=== PATIENT | female | born 1990 | race Caucasian/White ===

== ENCOUNTER 2024-09-12 17:49 | Emergency (ER) | payer SELFPAY ==
--- OUTSIDE RECORDS SUMMARY | 2024-09-12 17:53 | XMS REPORT | Continuity of Care Document ---
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 Interpretation Comme nts FT (test code = CHTR) Not detected (qual ifier value) Not Detected N FT (test code = NGONO) Not detected (qualifier value) Not Detected N STLMLURINALYSIS WITH [id number] 18:02:00* Test Item Value Reference Range Interpretation Comme nts Color (test code = UCOLR) Yellow Clarity (test code = UCLAR) Cloudy Glucose (test code = UGLUC) NEGATIVE NEGATIVE N Bilirubin (test code = UBILI) NEGATIVE NEGATIVE N Ketones (test code = UKET) NEGATIVE NEGATIVE N Specific [place] (test code = USPGR) >=1.030 1.005-1.030 A Blood (test code = UBLD) SMALL NEGATIVE A PH (test code = UPH) 6.0 4.5-8.0 A Protein (test code = UPROT) NEGATIVE NEGATIVE N Urobilinogen (test code = U UROB) 1.0 See_Comment A [Automated messa ge] The system which generated this result transmitted reference range: 0.2. The reference range was not used to interpret this result as normal/abnormal. Nitrite (test code = UNITR) NEGATIVE NEGATIVE N Leukocyte Esterase (test code = ULEUK) TRACE NEGATIVE A WBC (test code = WBCUR) 11-20 NONE,0-1,2-5,6-10 A RBC (test code = RBCUR) None Seen 0-5 A Epithial Cells (test code = U EPI) TNTC 0-10 A Mucous (test code = UMUC) Large None Seen A Bacteria (test code = UBACT) 1+ None Seen,Trace A STLMLCOVID EXTENDED [id number] 15:02:00* Test Item Value Reference Range Interpretation Comme nts COVID-19, Real Time PCR-TERRA (test code = COVID) Negative Negative N FT (test code = FLUAPCR) Negative (quali fier value) Negative N FT (test code = FLUBPCR) Negative (quali fier value) Negative N FT (test code = RSV) Negative (qualifier value) Negative N FIRST TEST: (test code = COVO.FT) U EMPLOYEE IN HEALTHCARE: (test code = COVO.EMP) U SYMPTOMATIC DEFINED BY CDC: (test code = COVO.SYMPH) U HOSPITALIZED: (test code = COVO.HOSP) U ADMITTED TO ICU: (test code = COVO.ICU) U RESIDENT IN CONGREGATE CARE (test code = COVO.SVEN) U : (test code = COVO.PREG) Not STLMLSTREP A [id number] 14:30:00* Test Item Value Reference Range Interpretation Comme nts Strep A Screen (test code = SAS) Positive Negative A TESTING IS PER FORMED ON THE [employer] ANALYZER WHICH EMPLOYS IMMUNOFLUORESCENCE TECHNOLOGY TO DETECT GROUP A STREPTOCOCCAL ANTIGENS FROM THROAT SWABS OF SYMPTOMATIC PATIENTS. ALL NEGATIVE RESULTS ARE CONFIRMED BY BACTERIAL CULTURE BECAUSE NEGATIVE RESULTS DO NOT PRECLUDE GROUP A STREP INFECTION AND SHOULD NOT BE USED THE SOLE BASIS FOR TREATMENT. THIS TEST IS INTENDED FOR PROFESSIONAL AND LABORATORY USE AN AID IN THE DIAGNOSIS OF GROUP A STREPTOCOCCAL INFECTION. STLML- CT ABD PELVIS [id number] 09:31:00 [facility] : 1990 Sex: F FAX:Jose Ibarra MD [place]: [facility] St: REG Name: KAYLA HAYES ED : 1990 Age/S: 31/F [address] [facility] Unit: [id number] Loc: [place] [address] Phys: Jose Ibarra MD Acct: [id number] Dis Date: Status: REG ER PHONE #: Exam Date: 01/07/2022924 FAX #: Reason: right abd/flank pain EXAMS: CPT CODE: [id number] CT ABD PELVIS W/CONT 24020 EXAMINATION: - CT ABD PELVIS W/CONT COMPARISON: None HISTORY: Right abdominal/flank pain LOCATION CODE: C3 TECHNIQUE: CT of the Abdomen and Pelvis with intravenous contrast. Oral contrast was not administered. Axial contrast enhanced images of the abdomen and pelvis were obtained and reviewed in soft tissue, bone and lung windows. Coronal and sagittalreconstructed images were also provided for review. All CT scans are performed using dose optimization techniques as appropriate to a performed exam including one or more of the following: ?Automatedexposure control ?Adjustment of the mA and/or kV according to patient size ?Use of iterative reconstruction technique FINDINGS ABDOMEN: The liver, gallbladder and biliary tree, spleen, pancreas, adrenal glands and kidneys are normal. There is no free air, free fluid or lymphadenopathy. The bowel, including the appendix, is normal. The vessels are normal. Mild scar/dependent atelectasis is seen inboth lower lungs. Regional osseous structures are intact. FINDINGS PELVIS: The urinary bladder, uterus and adnexal structures are normal. Small amount of free fluid is seen dependently in the pelvis and is likely physiologic. There is no free air or adenopathy. The bowel, vessels and bones are normal. IMPRESSION: No acute abnormality in the abdomen or pelvis. at 0931 Reported and signed by: Deonna Khan MD PAGE 1 Signed Report (CONTINUED) FAX: Jose Ibarra MD [place]: [facility] St: REG Name: TRICIAVISHNUKAYLA FSED : 1990 Age/S: 31/F [address] [facility] Unit: [id number] Loc: [place] [address] Phys: Jose Ibarra MD Acct: [id number] Dis Date: Status: REG ER PHONE #: Exam Date: 01/07/2022 0984 FAX #: Reason: right abd/flank pain EXAMS: CPT CODE: [id number] CT ABD PELVIS W/CONT 97898 (Continued) CC: Jose Ibarra MD Technologist: REMINGTON MERCADO Trnscrd Dt/Tm: 01/07/2022 (0931) TessR.[email or web address] Orig Print D/T: S: 01/07/2022 (5734 PAGE 2 Signed ReportBASIC METABOLIC PANEL 2022-01-07 09:20:00* Test Item Value Reference Range Interpretation Comme nts SODIUM (test code = NA) 139 MMOL/L 135-147 N POTASSIUM (test code = K) 3.6 MMOL/L 3.6-5.2 N CHLORIDE (test code = CL) 104 MMOL/L 98-108 N CARBON DIOXIDE (test code = CO2) 26 mmol/L 21-32 N GLUCOSE (test code = GLU) 84 mg/dL 70-110 N BLOOD UREA NITROGEN (test code = BUN) 10 MG/DL 6-21 N GLOMERULAR FILTRATION RATE (test code = GFR) 126 >60 The estimated glomerular filtration rate is computed usingpatient race, age (>18), sex, and serum creatinine. If anyof the needed data elements are missing the Laboratory cannot compute an estimation of the glomerular filtration rate. CREATININE (test code = CREAT) 0.6 mg/dL 0.6-1.3 N CALCIUM (test code = CA) 8.6 mg/dL 8.7-10.5 L LIVER FUNCTION [id number] 09:20:00* Test Item Value Reference Range Interpretation Comme nts TOTAL PROTEIN (test code = PROT) 6.8 g/dL 6.0-8.2 N ALBUMIN (test code = ALB) 3.2 G/DL 3.7-5.5 L BILIRUBIN TOTAL (test code = BILT) 0.30 mg/dL 0.0-1.0 N BILIRUBIN DIRECT (test code = BILD) 0.10 mg/dL 0.05-0.3 N SGOT/AST (test code = AST) 11 UNITS/L 10-37 N SGPT/ALT (test code = ALT) 15 UNITS/L 12-78 N ALKALINE PHOSPHATASE (test c ode = ALKP) 49 UNITS/L 46-116 N [id number] 09:20:00* Test Item Value Reference Range Interpretation Comme nts LIPASE (test code = LIP) 56 UNITS/L 73-393 L TROP-I HIGH [id number] 09:20:00* Test Item Value Reference Range Interpretation Comme nts TROP-I HIGH SENSITIVITY (cyndi t code = TROPIHS) 4 pg/mL 0-51 N UR HCG [id number] 08:50:00* Test Item Value Reference Range Interpretation Comme nts UR HCG QUAL (test code = HCGQLU) NEGATIVE NEGATIVE [id number] EXP 1 05/31/22 Indication for culture: Flank PainSOURCE OF URINE: CLEAN CATCHUA RFLX MICR CULT IF [id number] 08:50:00* Test Item Value Reference Range Interpretation Comme nts UA COLOR (test code = COLU) YELLOW YELLOW UA APPEARANCE (test code = APPU) CLOUDY CLEAR A UA GLUCOSE DIPSTICK (test code = DGLUU) NEGATIVE % TEST PERFORM ED MANUALLYUSING SIEMENS [employer] ANALYZER SN:[id number]. UA BILIRUBIN DIPSTICK (test code = BILU) NEGATIVE NEGATIVE UA KETONE DIPSTICK (test code = KETU) Trace MG/DL NEGATIVE A UA SPECIFIC GRAVITY (test code = SGU) 1.025 1.000-1.030 UA BLOOD DIPSTICK (test code = TAD) 3+ NEGATIVE UA PH DIPSTICK (test code = ESTRELLA) 6.5 4.5-8.5 UA PROTEIN DIPSTICK (test code = PROU) TRACE NEGATIVE A UA UROBILINOGEN DIPSTICK (test code = URO) 0.2 EU/dL See_Comment [Automated MyStarAutographa ge] The system which generated this result transmitted reference range: <=1.0. The reference range was not used to interpret this result as normal/abnormal. UA NITRITE DIPSTICK (test code = AILYN) NEGATIVE NEGATIVE UA LEUKOCYTE ESTERASE DIPSTICK (test code = LEUU) TRACE NEGATIVE A UA WBC (test code = WBCUR) 6-10 /HPF 0-3 UA RBC (test code = RBCU) 11-20 /HPF 0-3 A UA EPITHELIAL CELLS (test code = EPIU) MODERATE /LPF NONE-FEW A UA BACTERIA (test code = BACU) 2+ /HPF NEGATIVE A UA MUCUS (test code = MUCU) 2+ /LPF NONE SEEN Indication for culture: Flank PainSOURCE OF URINE: CLEAN CATCHCBC W/AUTO DIFF 2022-01-07 08:30:00* Test Item Value Reference Range Interpretation Comme nts WHITE BLOOD CELL (test code = WBC) 10.3 x10 3/uL 5.0-12.0 N RED BLOOD CELL (test code = RBC) 5.04 x10 6/uL 4.20-5.40 N HEMOGLOBIN (test code = HGB) 15.8 g/dL 12.0-16.0 N HEMATOCRIT (test code = HCT) 46.6 % 36.0-46.0 H MEAN CELL VOLUME (test code = MCV) 93 fL 81-99 N MEAN CELL HGB (test code = MCH) 31.3 pg 27-31 H MEAN CELL HGB CONCENTRATION (test code = MCHC) 33.9 g/dL 33-37 N RED CELL DISTRIBUTION WIDTH (test code = RDW) 13.3 % 11.5-15.5 N PLATELET COUNT (test code = PLT) 262 x10 3/uL 130-400 N MEAN PLATELET VOLUME (test c ode = MPV) 9.6 fL 9.4-16.4 N NEUTROPHIL % (test code = NT%) 72.8 % 43-65 H IMMATURE GRANULOCYTE % (test code = IG%) 0.3 % 0.0-2.0 N LYMPHOCYTE % (test code = LY%) 20.0 % 20.5-45.5 L MONOCYTE % (test code = MO%) 4.3 % 5.5-11.7 L EOSINOPHIL % (test code = EO%) 2.4 % 0.9-2.9 N BASOPHIL % (test code = BA%) 0.2 % 0.2-1.0 N NEUTROPHIL # (test code = NT#) 7.52 x10 3/uL 2.2-4.8 H IMMATURE GRANULOCYTE # (test code = IG#) 0.03 x10 3/uL 0-0.03 N LYMPHOCYTE # (test code = LY#) 2.06 x10 3/uL 1.3-2.9 N MONOCYTE # (test code = MO#) 0.44 x10 3/uL 0.3-0.8 N EOSINOPHIL # (test code = EO#) 0.25 x10 3/uL 0.0-0.2 H BASOPHIL # (test code = BA#) 0.02 x10 3/uL 0.0-0.1 N SALICYLATES (Aspirin)2020-09-09 00:07:00* Test Item Value Reference Range Interpretation Comme nts Salicylate (test code = SALI) 2.8 mg/dl 0.0-30.0 Salicylates Refe rence Ranges: Therapeutic 15 - 30 mg/dl Toxicity >30 mg/dl Lethal >70 mg/dl [facility], Urine [id number] 00:06:00* Test Item Value Reference Range Interpretation Comme nts (Urine) (test code = PREGU) Negative [facility] Summit[facility] SCREEN [id number] 00:06:00* Test Item Value Reference Range Interpretation Comme nts PH (test code = UPH) 6.0 Specific [place] (test code = USPGR) >=1.030 Amphetamines (test code = AMPHET) Positive FT (test code = BRIANA) Negative (qualifier value) FT (test code = BENZO) Negative (qualifier value) FT (test code = LORI) Negative (qualifier value) FT (test code = MTD) Negative (qualifier value) FT (test code = OPIAT) Negative (qualifier value) FT (test code = PCP) Negative (qualifier value) The following table provides an interpretive guide for the Drugs of Abuse ran on the Siem[employer] [place] analyzer listed there in: Amphetamines < 1000 ng/ml = Negative Barbituates < 200 ng/ml = Negative Benzodiazapines < 200 ngml = Negative Cocaine < 300 ng/ml = Negative Methadone < 300 ng/ml = Negative Opiate < 300 ng/ml = Negative PCP < 25 ng/ml = Negative THC < 50 ng/ml = Negative Results equal to or greater than the above cut-off values = Presumptive Positive. Confirmation of Presumptive Positive results are available upon request. Cannabinoids, THC (test code = THC) Positive [facility] (Ultra Sensitive)2020-09-09 00:06:00* Test Item Value Reference Range Interpretation Comme nts TSH (test code = TSH) 0.83 mIU/L 0.47-4.68 [facility] Summit[facility]MP2021-05-11 00:06:00* Test Item Value Reference Range Interpretation Comme nts Glucose (test code = GLU) 117 mg/dl 75-110 H BUN (test code = BUN) 13.0 mg/dl 6.0-17.0 Creatinine (test code = CREA) 0.8 mg/dl 0.4-1.2 Sodium (test code = NA) 138 mmol/l 137-145 Potassium (test code = K) 3.8 mmol/l 3.5-5.0 Chloride (test code = CL) 109 mmol/l 98-107 H CO2 (test code = CO2) 22 mmol/l 22-30 Calcium (test code = CALC) 9.0 mg/dl 8.4-10.2 T Protein (test code = TP) 7.6 gm/dl 5.1-8.7 Albumin (test code = ALB) 4.0 gm/dl 3.5-4.6 A/G Ratio (test code = AGRAT) 1.1 % 1.1-2.2 AST (SGOT) (test code = AST) 8 U/L 11-36 L ALT (SGPT) (test code = ALT) 21 U/L 11-40 Alkaline Phos (test code = ALKP) 44 U/L 47-114 L Total Bilirubin (test code = TBIL) 0.3 mg/dl 0.2-1.2 Globulin (test code = GLOBU) 3.6 gm/dl 2.3-3.5 H Calcium, Corrected (test code = CALCCORR) 9.0 mg/dl 8.4-10.2 Various formulas exist for corrected serum calcium results, each yielding different values. This corrected result was based on the formula: Corrected Calcium = SerumCalcium + [0.8 * ( 4 - SerumAlbumin)] EGFR if (test code = EGFRAA) >60 mL/min/1.73m\\ S\\2 EGFR if Non- (test code = EGFRNA) >60 mL/min/1.73m\\ S\\2 Estimated Glomerular Filtration Rate (eGFR) Reference Intervals Decision Points for 18 years and older and average body mass: >= 60 Does not exclude kidney disease. 30 - 59 Suggests moderate chronic kidney disease and indicates the need for further investigation including assessment of proteinuria and cardiovascular factors. < 30 Usually indicates a need for referral for assessment and management of chronic kidney failure. [facility] SummitACETAMINOPHEN (Tyenol)2020-09-09 00:06:00* Test Item Value Reference Range Interpretation Comme nts Acetaminophen (test code = ACET) <2 ug/ml 10-25 L [facility] SummitCPK2021-05-11 00:06:00* Test Item Value Reference Range Interpretation Comme nts CPK (test code = CPK) 110 U/L 30-135 [facility] SummitALCOHOL, [id number] 00:06:00* Test Item Value Reference Range Interpretation Comme nts Alcohol % (test code = ALCPC) 0 % 0.00-0.00 N Ethanol % 0.00 - 0.10 Sub-clinical 0.11 - 0.20 Emotional Instability 0.21 - 0.30 Confusion 0.31 - 0.40 Stupor 0.41 - 0.50 Coma >.50 Fatal [facility] SummitTROPONIN-I [id number] 00:06:00* Test Item Value Reference Range Interpretation Comme nts Troponin-I (test code = TROP) <0.015 ng/ml 0.000-0.034 N The 99th Percent ile URL is 0.045 ng/mL for the Siem[employer] [place] Troponin I. The Joint Society of Cardiology/[place] [employer] Card[employer] (ESC/ACC) and the National Academy of Clinical Biochemistry Standards of Laboratory Practices (NACB) recommends that the diagnosis of AMI includes the presence of clinical history suggestive of Acute Coronary Syndrome (ACS) and a maximum concentration of cardiac troponin exceeding the 99th percentile of a normal reference population [upper reference limit (URL)] on at least one occasion during the first 24 hours after the clinical event. [facility] SummitURINALYSIS WITH [id number] 00:05:00 * Test Item Value Reference Range Interpretation Comme nts Color (test code = UCOLR) Yellow Clarity (test code = UCLAR) Hazy Glucose (test code = UGLUC) NEGATIVE NEGATIVE N Bilirubin (test code = UBILI) NEGATIVE NEGATIVE N Ketones (test code = UKET) NEGATIVE NEGATIVE N Specific [place] (test code = USPGR) >=1.030 1.005-1.030 A Blood (test code = UBLD) TRACE-LYSED NEGATIVE A PH (test code = UPH) 6.0 4.5-8.0 A Protein (test code = UPROT) NEGATIVE NEGATIVE N Urobilinogen (test code = U UROB) 0.2 See_Comment N [Automated MyStarAutographa ge] The system which generated this result transmitted reference range: 0.2. The reference range was not used to interpret this result as normal/abnormal. Nitrite (test code = UNITR) NEGATIVE NEGATIVE N Leukocyte Esterase (test code = ULEUK) NEGATIVE NEGATIVE N WBC (test code = WBCUR) 0-5 0-5 N RBC (test code = RBCUR) 3-5 0-5 A Epithial Cells (test code = U EPI) 5-10 0-10 A Mucous (test code = UMUC) Moderate None Seen A Bacteria (test code = UBACT) 2+ None Seen,Trace A [facility] WITH AUTO [id number] 23:51:00* Test Item Value Reference Range Interpretation Comme nts WBC (test code = WBC) 14.03 10\\S\\3/ul 4.80-10.80 H RBC (test code = RBC) 4.59 10\\S\\6/ul 4.20-5.40 Hemoglobin (test code = HGB) 14.3 gm/dl 12.0-14.0 H Hematocrit (test code = HCT) 40.5 % 37.0-47.0 MCV (test code = MCV) 88.2 fL 81.0-99.0 MCH (test code = MCH) 31.2 pg 27.0-31.0 H MCHC (test code = MCHC) 35.3 gm/dl 33.0-37.0 RDW (test code = RDWVC) 12.2 % 11.5-14.5 Platelet (test code = PLT) 223 10\\S\\3/ul 130-400 MPV (test code = MPV) 9.4 fL 7.4-10.4 A "NOT MEASURED" RESULTS ARE DISPLAYED WHEN THE INSTRUMENT HAS A SUPPRESSED OR UNREPORTABLE RESULT. THIS WILL MOST OFTEN HAPPEN WITH THE MPV WHEN THERE IS AN ABNORMAL PLATELET DISTRIBUTION DUE TO A CRITICAL LOW VALUE OR PLATELET CLUMPING. THE RDW MAY BE SUPPRESSED IF THERE ARE MULTIPLE PEAKS PRESENT ON THE RBC HISTOGRAM. IN THIS CASE, A MANUAL REVIEW OF THE SLIDE WILL BE PERFORMED, AND RBC MORPHOLOGY WILL BE NOTED ON THE REPORT. NE% (test code = NE) 85.2 % 42.0-75.0 H LY% (test code = LY) 10.0 % 13.0-42.0 L MO% (test code = MO) 3.9 % 4.0-14.0 L EO% (test code = EO) 0.3 % 1.0-5.0 L BA% (test code = BA) 0.1 % 0.0-3.0 IG% (test code = IG%) 0.5 % 0.0-0.[address] [id number] 07:53:00* Test Item Value Reference Range Interpretation Comme nts Strep A culture (test code = STRAC) Negative Negative N [facility]REP A [id number] 10:41:00* Test Item Value Reference Range Interpretation Comme nts Strep A Screen (test code = SAS) Negative Negative N TESTING IS PER FORMED ON THE [employer] PRAKASH ANALYZER WHICH EMPLOYS IMMUNOFLUORESCENCE TECHNOLOGY TO DETECT GROUP A STREPTOCOCCAL ANTIGENS FROM THROAT SWABS OF SYMPTOMATIC PATIENTS. ALL NEGATIVE RESULTS ARE CONFIRMED BY BACTERIAL CULTURE BECAUSE NEGATIVE RESULTS DO NOT PRECLUDE GROUP A STREP INFECTION AND SHOULD NOT BE USED THE SOLE BASIS FOR TREATMENT. THIS TEST IS INTENDED FOR PROFESSIONAL AND LABORATORY USE AN AID IN THE DIAGNOSIS OF GROUP A STREPTOCOCCAL INFECTION. [facility] Summit[facility] ABDOMEN/PELVIS [id number] 13:29:46pending HCGCT of the abdomen and pelvis with contrast:History: Right lower quadrant abdominal painMultidetector CT of the abdomen and pelvis was performed following intravenousinjection of 100 mL of Isovue-300.Dose reduction technique was employed usingautomated exposure control and adjustment of mA and/or kV according to patientsize. Total DLP 1146 mGy-cm.The visualized lung bases are unremarkable.The liver, spleen, pancreas, gallbladder, adrenals, kidneys and abdominal aortaappear normal.The bladder isunremarkable. The appendix appears normal. No inflammatorychanges are noted. The bowel loops as visualized appear within normal limits.Minimal ascites in the lower pelvis is within physiologic limits. There is nolymphadenopathy. Bilateral L5 pars interarticularis defects are noted withoutspondylolisthesis. There are no significant bony abnormalities.Impression:1. No acute abnormality of the abdomen or pelvis.2. Bilateral L5 spondylolysis without spondylolisthesis.This final report was electronically signed by Dr Jose Hogan MD 02/07/20181:23 PMDictated By: JOSE HOGANDate: 02/07/2018 13:23[facility]OOKURINALYSIS WITH [id number] 13:06:00* Test Item Value Reference Range Interpretation Comme nts Color (test code = UCOLR) LT. YELLOW Clarity (test code = UCLAR) CLEAR Glucose (test code = UGLUC) NEGATIVE NEGATIVE N Bilirubin (test code = UBILI) NEGATIVE NEGATIVE N Ketones (test code = UKET) NEGATIVE NEGATIVE N Specific [place] (test code = USPGR) 1.015 1.005-1.030 A Blood (test code = UBLD) TRACE-INTACT NEGATIVE A PH (test code = UPH) 7.5 4.5-8.0 A Protein (test code = UPROT) NEGATIVE NEGATIVE N Urobilinogen (test code = U UROB) 1.0 >0.2 A Nitrite (test code = UNITR) NEGATIVE NEGATIVE N Leukocyte Esterase (test code = ULEUK) NEGATIVE NEGATIVE N WBC (test code = WBCUR) 2-5 0-5 A RBC (test code = RBCUR) 0-2 0-5 A Epithial Cells (test code = U EPI) 10-20 0-10 A Mucous (test code = UMUC) Trace None Seen A Bacteria (test code = UBACT) Trace None Seen,Trace N Crystals Urine (test code = URCRYS) Trace Amorphous Sediment None [id number]00* Test Item Value Reference Range Interpretation Comme nts Glucose (test code = GLU) 90 mg/dl 75-110 BUN (test code = BUN) 6.0 mg/dl 6.0-17.0 Creatinine (test code = CREA) 0.5 mg/dl 0.4-1.2 Sodium (test code = NA) 142 mmol/l 137-145 Potassium (test code = K) 4.0 mmol/l 3.5-5.0 Chloride (test code = CL) 110 mmol/l 98-107 H CO2 (test code = CO2) 24 mmol/l 22-30 Calcium (test code = CALC) 8.6 mg/dl 8.4-10.2 T Protein (test code = TP) 7.3 gm/dl 5.1-8.7 Albumin (test code = ALB) 3.7 gm/dl 3.5-4.6 A/G Ratio (test code = AGRAT) 1.0 % 1.1-2.2 L AST (SGOT) (test code = AST) 16 U/L 11-36 ALT (SGPT) (test code = ALT) 22 U/L 11-40 Alkaline Phos (test code = ALKP) 51 U/L 47-114 Total Bilirubin (test code = TBIL) 0.4 mg/dl 0.2-1.2 Globulin (test code = GLOBU) 3.6 gm/dl 2.3-3.5 H Calcium, Corrected (test code = CALCCORR) 8.8 mg/dl 8.4-10.2 Various formulas exist for corrected serum calcium results, each yielding different values. This corrected result was based on the formula: Corrected Calcium = SerumCalcium + [0.8 * ( 4 - SerumAlbumin)] EGFR if (test code = EGFRAA) >60 mL/min/1.73m\\ S\\2 EGFR if Non- (test code = EGFRNA) >60 mL/min/1.73m\\ S\\2 Estimated Glomerular Filtration Rate (eGFR) Reference Intervals Decision Points for 18 years and older and average body mass: >= 60 Does not exclude kidney disease. 30 - 59 Suggests moderate chronic kidney disease and indicates the need for further investigation including assessment of proteinuria and cardiovascular factors. < 30 Usually indicates a need for referral for assessment and management of chronic kidney failure. [facility], [id number] 12:39:00* Test Item Value Reference Range Interpretation Comme nts Lipase (test code = LIPA) 70 U/L 8-223 [facility], [id number] 12:39:00* Test Item Value Reference Range Interpretation Comme nts Amylase (test code = AMYL) 24 U/L 12-103 [facility], Serum [id number] 12:28:00* Test Item Value Reference Range Interpretation Comme nts (Serum) (test code = PREGS) Negative Negative N [facility] Summit[facility] WITH AUTO [id number] 12:22:00* Test Item Value Reference Range Interpretation Comme nts WBC (test code = WBC) 14.27 10\\S\\3/ul 4.80-10.80 H RBC (test code = RBC) 4.88 10\\S\\6/ul 4.20-5.40 Hemoglobin (test code = HGB) 15.5 gm/dl 12.0-14.0 H Hematocrit (test code = HCT) 45.2 % 37.0-47.0 MCV (test code = MCV) 92.6 fL 81.0-99.0 MCH (test code = MCH) 31.8 pg 27.0-31.0 H MCHC (test code = MCHC) 34.3 gm/dl 33.0-37.0 RDW (test code = RDWVC) 12.3 % 11.5-14.5 Platelet (test code = PLT) 206 10\\S\\3/ul 130-400 MPV (test code = MPV) 10.4 fL 7.4-10.4 A "NOT MEASURED" RESULTS ARE DISPLAYED WHEN THE INSTRUMENT HAS A SUPPRESSED OR UNREPORTABLE RESULT. THIS WILL MOST OFTEN HAPPEN WITH THE MPV WHEN THERE IS AN ABNORMAL PLATELET DISTRIBUTION DUE TO A CRITICAL LOW VALUE OR PLATELET CLUMPING. THE RDW MAY BE SUPPRESSED IF THERE ARE MULTIPLE PEAKS PRESENT ON THE RBC HISTOGRAM. IN THIS CASE, A MANUAL REVIEW OF THE SLIDE WILL BE PERFORMED, AND RBC MORPHOLOGY WILL BE NOTED ON THE REPORT. NE% (test code = NE) 81.4 % 42.0-75.0 H LY% (test code = LY) 13.0 % 13.0-42.0 MO% (test code = MO) 3.3 % 4.0-14.0 L EO% (test code = EO) 1.5 % 1.0-5.0 BA% (test code = BA) 0.2 % 0.0-3.0 IG% (test code = IG%) 0.6 % 0.0-0.4 H [facility], [id number] 07:21:00Specimen: Urine SpecimensCollected: 06/25/2016 19:57 Status: Final Last Updated: 06/28/2016 07:21 Culture Result (Final) (Final) >100,000 cc/mL Gram Negative Bacilli Isolate (Final) (Final) Escherichia coli Amoxicillin/clavu 4 S Ampicillin 4 S Aztreonam <=1 S Cefazolin <=4 S Cefepime <=1 S Ceftriaxone <=1 S Ciprofloxacin <=0.25 S Gentamicin <=1 S Imipenem <=0.25 S Levofloxacin <=0.12 S Meropenem <=0.25 S Nitrofurantoin <=16 S Tetracycline <=1 S Trimeth/Sulfa & lt;=20 S ESBL Negative -[facility] 1, 21:23:00* Test Item Value Reference Range Interpretation Comme nts HIV 1, 2 (test code = HIV) 0.13 0.00-0.80 INTERPRETATION O F RESULTS: Non-Reactive = < 0.90 s/c Reactive = > 1.00 s/c (Confirmatory tests suggested) Intermediate = > 0.90 s/c and <1.00 s/c (results are based on duplicate testing) 1. Result is considered as Non-Reactive if both the initial and repeat testing results are non-reactive. 2. Result is considered as Reactive if one or both the initial and repeat testing results are reactive. (Confirmatory tests suggested) [facility] WITH AUTO [id number] 20:48:00* Test Item Value Reference Range Interpretation Comme nts WBC (test code = WBC) 10.7 k/ul 4.8-10.8 RBC (test code = RBC) 4.87 Millions/ul 4.20-5.40 Hemoglobin (test code = HGB) 15.0 gm/dl 12.0-14.0 H Hematocrit (test code = HCT) 44.7 % 37.0-47.0 MCV (test code = MCV) 91.8 fL 81.0-99.0 MCH (test code = MCH) 30.9 pg 27.0-31.0 MCHC (test code = MCHC) 33.6 gm/dl 33.0-37.0 RDW (test code = RDWVC) 13.3 % 11.5-14.5 Platelet (test code = PLT) 97 k/ul 130-400 L MPV (test code = MPV) 9.1 fL 7.4-10.4 NE% (test code = NE) 67.3 % 42.0-75.0 LY% (test code = LY) 24.0 % 13.0-42.0 MO% (test code = MO) 4.9 % 4.0-14.0 EO% (test code = EO) 3.3 % 1.0-3.0 H BA% (test code = BA) 0.5 % 1.0-3.0 L NRBC, Auto (test code = NRBC_AUTO) 0 /100WBC 0-0 [facility], Serum [id number] 20:37:00* Test Item Value Reference Range Interpretation Comme nts (Serum) (test code = PREGS) Negative Negative N [facility] SummitURINALYSIS WITH [id number] 20:34:00 * Test Item Value Reference Range Interpretation Comme nts Color (test code = UCOLR) Lt. Yellow Clarity (test code = UCLAR) Sl Cloudy Glucose (test code = UGLUC) NEGATIVE NEGATIVE N Bilirubin (test code = UBILI) NEGATIVE NEGATIVE N Ketones (test code = UKET) NEGATIVE NEGATIVE N Specific [place] (test code = USPGR) 1.010 1.005-1.030 A Blood (test code = UBLD) Large NEGATIVE A PH (test code = UPH) 7.0 4.5-8.0 A Protein (test code = UPROT) Trace NEGATIVE A Urobilinogen (test code = U UROB) 0.2 >0.2 N Nitrite (test code = UNITR) NEGATIVE NEGATIVE N Leukocyte Esterase (test cod e = ULEUK) Small NEGATIVE A WBC (test code = WBCUR) 16-22 0-5 A RBC (test code = RBCUR) 11-16 0-5 A Epithial Cells (test code = U EPI) 28-35 0-10 A Mucous (test code = UMUC) None Seen None Seen N Bacteria (test code = UBACT) 1+ None Seen,Trace A [facility] [id number] 20:30:00* Test Item Value Reference Range Interpretation Comme nts Glucose (test code = GLU) 84 mg/dl 75-110 BUN (test code = BUN) 13.0 mg/dl 6.0-17.0 Creatinine (test code = CREA) 0.7 mg/dl 0.4-1.2 Sodium (test code = NA) 143 mmol/l 137-145 Potassium (test code = K) 4.7 mmol/l 3.5-5.0 Chloride (test code = CL) 106 mmol/l 98-107 CO2 (test code = CO2) 26 mmol/l 22-30 Calcium (test code = CALC) 10.1 mg/dl 8.4-10.2 T Protein (test code = TP) 7.9 gm/dl 5.1-8.7 Albumin (test code = ALB) 4.7 gm/dl 3.5-4.6 H A/G Ratio (test code = AGRAT) 1.5 % 1.1-2.2 AST (SGOT) (test code = AST) 21 U/L 11-36 ALT (SGPT) (test code = ALT) 42 U/L 11-40 H Alkaline Phos (test code = ALKP) 58 U/L 47-114 Total Bilirubin (test code = TBIL) 0.6 mg/dl 0.2-1.2 Globulin (test code = GLOBU) 3.2 gm/dl 2.3-3.5 Anion Gap (test code = GAP) 10 Calcium, Corrected (test code = CALCCORR) 9.5 mg/dl 8.4-10.2 Various formulas exist for corrected serum calcium results, each yielding different values. This corrected result was based on the formula: Corrected Calcium = SerumCalcium + [0.8 * ( 4 - SerumAlbumin)] EGFR if (test code = EGFRAA) >60 mL/min/1.73m\\ S\\2 EGFR if Non- (test code = EGFRNA) >60 mL/min/1.73m\\ S\\2 Estimated Glomerular Filtration Rate (eGFR) Reference Intervals Decision Points for 18 years and older and average body mass: >= 60 Does not exclude kidney disease. 30 - 59 Suggests moderate chronic kidney disease and indicates the need for further investigation including assessment of proteinuria and cardiovascular factors. < 30 Usually indicates a need for referral for assessment and management of chronic kidney failure. [facility]IP[facility], [id number] 20:30:00* Test Item Value Reference Range Interpretation Comme nts Lipase (test code = LIPA) 52 U/L 8-223 [facility] SummitAMYLASE, [id number] 20:30:00* Test Item Value Reference Range Interpretation Comme nts Amylase (test code = AMYL) 47 U/L 12-103 [facility] Notes Date/Time Note Provider Source 2023-10-03 20:40:00 [facility] ([facility]) EMERGENCY PROVIDER REPORT REPORT#:[id number] REPORT STATUS: Signed DATE:10/03/23 TIME: 2039 PATIENT: KAYLA HAYES UNIT #: [id number] ROOM/BED: AGE: 33 SEX: F PCP PHYS: Jan Alvarez MD SERVICE AUTHOR: Don Mcgrath DO * ALL edits or amendments must be made on the electronic/computer document * Don Mcgrath 10/03/232039: HPI-General Illness Free Text HPI Notes Free Text HPI Notes History of Present Illness: Patient presents via EMS brought in as she was found to tie a noose on the second floor with intention to put around her neck and jump. Patient admits to illicit drug usage and alcohol usage. Patient otherwise not forthcoming with history. Cooperative on arrival otherwise Review of Systems: Negative except noted in HPI Physical Exam: AOx4, NAD, well appearing, cooperative Head: NC, AT Neck: supple, no jvd, no bruit or ligature samuels or signs of self injury Eyes: PERRL, EOMi, no icterus, no photophobia Resp: B/L BS, no wheezing, no rales, no rhonchi, no distress CV: RRR, nml cap refill, Abd: soft, NT, No rebound/guarding Back: No CVAT, no midline tenderness Ext: no pitting edema. FROM Skin: no lacerations. intact Differential Diagnosis: SI, HI, delusion Medical Decision Making: Patient higher risk given actions toward suicide attempt. Will keep involuntary for psychiatric evaluation once medically cleared. Patient is now INVOLUNTARY because It is unsafe to discharge this patient secondary to suicide ideation by hanging. Emergency prison warrant will be initiated, communicated with charge nurse. 2040 at 10/03/2023 Disposition: Psychiatric evaluation This documentation was created with voice recognition system. There may be some errors during voice transcribing. Please attempt to interpret General Initial Greet Date/Time 10/03/232036 Presentation Chief Complaint __ (SI) Suicide Risk Detail Assessment Suicide Risk Detail Assessment Suicide risk score: The data set between the solid lines has been imported from nursing documentation. Any exceptions have been noted below under Provider comments. ____ Calculated suicide risk level: ____ Provider comments on imported nursing data: [] Overall risk level-suicide: high risk Past Medical History - Adult Stated Complaint SI Allergies Coded Allergies: No Known Allergies (01/07/22) Home Medications Active Scripts CEPHALEXIN (KEFLEX) 500 MG PO TID 7 Days #21 CAPS Prov: 01/07/22 Past Medical History: Denies: Diabetes mellitus. Past Surgical History: Denies: Abdominal surgery. Alcohol Use Alcohol use Drug Use Meth/amphetamines Physical Exam Vital Signs Vital Signs First Documented: Result Date Time Pulse Ox 100 10/02 2036 B/P 126/86 10/02 2036 B/P Mean 99 10/02 2036 O2 Delivery Room air 10/02 2036 Temp 98.1 10/02 2036 Pulse 87 10/02 2036 Resp 18 10/02 2036 Last Documented: Result Date Time Pulse Ox 96 10/03 2123 B/P 124/85 10/03 2123 B/P Mean 98.0 10/03 2123 Temp 98.1 10/03 2123 Pulse 99 10/03 2123 Resp 18 10/03 2123 O2 Delivery Room air 10/02 2036 Review of Vital Signs Reviewed Interpretation Diagnostics Lab Results Interpretation Results Laboratory Tests 10/03/232057: [Embedded Image Not Available] Laboratory Tests: 10/02 Chemistry Sodium (137 - 145 mmol/L) 142 Potassium (3.4 - 5.0 mmol/L) 3.9 Chloride (98 - 107 mmol/L) 107 Carbon Dioxide (22 - 30 mmol/L) 26 Anion Gap (10 - 20 mmol/L) 13 BUN (7 - 17 mg/dL) 8 Creatinine (0.5 - 1.0 mg/dL) 0.6 Glomerular Filtr Rate (mL/min) 123 Glucose (74 - 106 mg/dL) 97 Calcium (8.4 - 10.2 mg/dL) 9.2 Total Bilirubin (0.2 - 1.3 mg/dL) 0.4 Conjugated Bilirubin (0 - 0.3 mg/dL) 0 Unconjugated Bilirubin (0 - 1.1 mg/dL) 0.2 AST (15 - 46 U/L) 24 ALT (0 - 34 U/L) 13 Total Alk Phosphatase (38 - 126 U/L) 38 Total Protein (6.3 - 8.2 g/dL) 7.8 Albumin (3.5 - 5.0 g/dL) 4.4 Specimen Hemolysis (0 - 100 Index/DL) 72 Hematology WBC (5.0 - 12.0 x10 3/uL) 7.7 RBC (4.20 - 5.40 x10 6/uL) 4.65 Hgb (12.0 - 16.0 g/dL) 14.2 Hct (36.0 - 46.0 %) 42.5 MCV (81 - 99 fL) 91 MCH (27 - 31 pg) 30.5 MCHC (33 - 37 g/dL) 33.4 RDW (11.5 - 15.5 %) 13.5 Plt Count (130 - 400 x10 3/uL) 62 L MPV (9.4 - 16.4 fL) 9.7 Neut % (Auto) (43 - 65 %) 68.5 H Lymph % (Auto) (20.5 - 45.5 %) 26.2 Baker % (Auto) (5.5 - 11.7 %) 1.8 L Eos % (Auto) (0.9 - 2.9 %) 3.0 H Baso % (Auto) (0.2 - 1.0 %) 0.4 Neut # (Auto) (2.2 - 4.8 x10 3/uL) 5.27 H Lymph # (Auto) (1.3 - 2.9 x10 3/uL) 2.02 Baker # (Auto) (0.3 - 0.8 x10 3/uL) 0.14 L Eos # (Auto) (0.0 - 0.2 x10 3/uL) 0.23 H Baso # (Auto) (0.0 - 0.1 x10 3/uL) 0.03 Immature Gran % (0.0 - 2.0 %) 0.1 Nucleated RBC % (0 - 1.0 %) 0.0 Platelet Estimate (ADEQUATE) DECREASED Plt Morphology Comment (NORMAL) NORMAL Miscellaneous Maternal Serum HCG (IU/L) < 2.39 Toxicology Urine Opiates Screen (NEGATIVE) NEGATIVE Ur Barbiturates, Qual (NEGATIVE) NEGATIVE Ur Phencyclidine Scrn (NEGATIVE) NEGATIVE Ur Amphetamines Screen (NEGATIVE) POSITIVE H U Benzodiazepines Scrn (NEGATIVE) NEGATIVE Urine Cocaine Screen (NEGATIVE) NEGATIVE Urine Cannabinoids (NEGATIVE) POSITIVE H Ethyl Alcohol (<10 mg/dL) 133 H Urines Urine Color (Yellow) STRAW Urine Appearance (Clear) Ex.Turbid Urine pH (5.0 - 8.0) 7.5 Ur Specific [place] (<1.030) 1.011 Urine Protein (Negative mg/dL) NEGATIVE Urine Glucose (UA) (Negative) Normal Urine Ketones (Negative mg/dL) Negative Urine Blood (Negative) TRACE Urine Nitrite (Negative) Negative Urine Bilirubin (Negative) Negative Urine Urobilinogen (Negative mg/dL) Negative Ur Leukocyte Esterase (Negative) NEGATIVE Urine RBC (<4 - 5 /HPF) 0-3 Urine WBC (<4 - 5 /HPF) 0-3 Ur Squamous Epith Cells (0 - 5 (RARE) /HPF) 0-5 (RARE) Amorphous Sediment (None /HPF) Moderate H Urine Bacteria (None - Rare /HPF) None Urine Mucus (<Rare /LPF) Rare H Re-Evaluation MDM ED Course Medication(s) Ordered Medication(s) Ordered: Central Nervous System Agents Sig/Britany Start time Last Medication Dose Route Stop Time Status Admin Acetaminophen 650 MG X1ED STA 10/03 12 DC 10/03 PO 10/034 0023 Patient Discharge Departure Vital Signs/Condition Vital Signs First Documented: Result Date Time Pulse Ox 100 10/02 2036 B/P 126/86 10/02 2036 B/P Mean 99 10/02 2036 O2 Delivery Room air 06/03 2037 Temp 98.1 10/02 2036 Pulse 87 10/02 2036 Resp 18 10/02 2036 Last Documented: Result Date Time Pulse Ox 96 10/03 2123 B/P 124/85 10/03 2123 B/P Mean 98.0 10/03 2123 Temp 98.1 10/03 2123 Pulse 99 10/03 2123 Resp 18 10/03 2123 O2 Delivery Room air 10/02 2036 All vital signs available at the time of this entry have been reviewed. Clinical Impression Clinical Impression Primary Impression: Suicidal behavior Disposition Decision Transfer )( Request Time 336 )( Request Date 10/04/23 Spoke with: Specialty physician )( Acceptance Time 337 )( Acceptance Date 10/04/23 Transfer Reason Psychiatric services Blane Tony 10/04/23 0627: Re-Evaluation MDM Free Text MDM Notes Free Text MDM Notes I received hand-off from the previous ED provider and I have seen and examined patient today at 0620. I have reviewed their vital signs, laboratory results, medications, and plan of care. They are currently awaiting final disposition in accordance with multidisciplinary behavioral health team evaluation and recommendations. My physical exam findings are as follows: General: well appearing, non-toxic, calm and cooperative Lungs: no distress Assessment: No change in medical condition. Continue management of behavioral issues per psychiatry recommendations. Continue to wait for final disposition. Suicide Risk Assessment: Unchanged from prior assessment at 1713 at 0517 RPT #:[id number] END OF REPORT [facility] 2022-01-07 07:52:00 [facility] ([facility]) EMERGENCY PROVIDER REPORT REPORT#:[id number] REPORT STATUS: Signed DATE:01/07/22 TIME: 0752 PATIENT: KAYLA HAYES UNIT #: [id number] ROOM/BED: AGE: 31 SEX: F PCP PHYS: No Primary or Family Physician SERVICE AUTHOR: Jose Ibarra MD * ALL edits or amendments must be made on the electronic/computer document * HPI-General Illness Free Text HPI Notes Free Text HPI Notes Patient states she has had right flank pain for 2 weeks. Denies other symptoms or concerns. Everyday smoker. Methamphetamines and alcohol abuse. General Initial Greet Date/Time 01/07/22 0751 Presentation Chief Complaint Flank pain Hx Obtained From Patient, EMS Onset Occurred Weeks ago (2) Symptom Duration Since onset Progression since Onset Waxes and wanes Caused by No trauma by history Associated with Denies: Bleeding, Chest pain, Cough, Fever, Off balance, Rash, Shortness of breath, Syncope, Vomiting. Exacerbated by Moving affected area Relieved by Remaining still Context Recent Healthcare No recent doctor visit Review of Systems ROS Statements All systems rev neg except as marked. Free Text ROS Notes Free Text ROS Notes Denies fever, chills, sore throat, nasal congestion, chest pain, syncope, cough, shortness of breath, vomiting, diarrhea, dysuria, hematuria, weakness, numbness, ataxia, rash Past Medical History - Adult Stated Complaint RIGHT FLANK PAIN TIMES 2 WEEKS Allergies Coded Allergies: No Known Allergies (01/07/22) Home Medications Reported Medications No Known Home Medications Past Medical History: Denies: Diabetes mellitus. Past Surgical History: Denies: Abdominal surgery. Alcohol Use Alcohol use Drug Use Meth/amphetamines Smoking status for patients 13 years old or older: Current every day smoker Physical Exam Vital Signs Vital Signs First Documented: Result Date Time Pulse Ox 95 / 0750 B/P 125/88 / 0750 B/P Mean 100 /08 0750 O2 Delivery Room air / 0750 Temp 36.7 09/08 0750 Pulse 85 09/08 0750 Resp 16 / 0750 Last Documented: Result Date Time Pulse Ox 100 / 0900 B/P 117/78 / 0900 Pulse 84 / 0900 B/P Mean 100 /08 0750 O2 Delivery Room air / 0750 Temp 36.7 09/08 0750 Resp 16 / 0750 Review of Vital Signs Reviewed Free Text PE Notes Free Text PE Notes Physical examination: Vital signs reviewed, see nurse's note. Head: Normocephalic, atraumatic. Eyes: EOMI, normal conjunctiva. ENT: Well-hydrated oral mucosa, no erythema or lesions. Neck: Trachea midline, nontender. No cervical lymphadenopathy. Cardiovascular: Regular rate and rhythm, no peripheral edema. Pulmonary: No dyspnea, clear equal breath sounds bilaterally. Abdomen: Soft, nontender, nondistended. Extremities: No deformity, active full range of motion. Good pulses and cap refill. Neurological: Alert, oriented, no gross motor deficits. No ataxia. Skin: No rash. Interpretation Diagnostics Lab Results Interpretation Results Laboratory Tests 01/07/22819: [Embedded Image Not Available] Laboratory Tests: 01/08 820 Chemistry Sodium (135 - 147 MMOL/L) 139 Potassium (3.6 - 5.2 MMOL/L) 3.6 Chloride (98 - 108 MMOL/L) 104 Carbon Dioxide (21 - 32 mmol/L) 26 BUN (6 - 21 MG/DL) 10 Creatinine (0.6 - 1.3 mg/dL) 0.6 Glomerular Filtr Rate (>60) 126 Glucose (70 - 110 mg/dL) 84 Calcium (8.7 - 10.5 mg/dL) 8.6 L Total Bilirubin (0.0 - 1.0 mg/dL) 0.30 Direct Bilirubin (0.05 - 0.3 mg/dL) 0.10 AST (10 - 37 UNITS/L) 11 ALT (12 - 78 UNITS/L) 15 Total Alk Phosphatase (46 - 116 UNITS/L) 49 Troponin I High Sens (0 - 51 pg/mL) 4 Total Protein (6.0 - 8.2 g/dL) 6.8 Albumin (3.7 - 5.5 G/DL) 3.2 L Lipase (73 - 393 UNITS/L) 56 L Hematology WBC (5.0 - 12.0 x10 3/uL) 10.3 RBC (4.20 - 5.40 x10 6/uL) 5.04 Hgb (12.0 - 16.0 g/dL) 15.8 Hct (36.0 - 46.0 %) 46.6 H MCV (81 - 99 fL) 93 MCH (27 - 31 pg) 31.3 H MCHC (33 - 37 g/dL) 33.9 RDW (11.5 - 15.5 %) 13.3 Plt Count (130 - 400 x10 3/uL) 262 MPV (9.4 - 16.4 fL) 9.6 Neut % (Auto) (43 - 65 %) 72.8 H Lymph % (Auto) (20.5 - 45.5 %) 20.0 L Baker % (Auto) (5.5 - 11.7 %) 4.3 L Eos % (Auto) (0.9 - 2.9 %) 2.4 Baso % (Auto) (0.2 - 1.0 %) 0.2 Neut # (Auto) (2.2 - 4.8 x10 3/uL) 7.52 H Lymph # (Auto) (1.3 - 2.9 x10 3/uL) 2.06 Baker # (Auto) (0.3 - 0.8 x10 3/uL) 0.44 Eos # (Auto) (0.0 - 0.2 x10 3/uL) 0.25 H Baso # (Auto) (0.0 - 0.1 x10 3/uL) 0.02 Immature Gran % (0.0 - 2.0 %) 0.3 Urines Urine Color (YELLOW) YELLOW Urine Appearance (CLEAR) CLOUDY H Urine pH (4.5 - 8.5) 6.5 Ur Specific [place] (1.000 - 1.030) 1.025 Urine Protein (NEGATIVE) TRACE H Urine Glucose (UA) (%) NEGATIVE Urine Ketones (NEGATIVE MG/DL) Trace H Urine Blood (NEGATIVE) 3+ Urine Nitrite (NEGATIVE) NEGATIVE Urine Bilirubin (NEGATIVE) NEGATIVE Urine Urobilinogen (<=1.0 EU/dL) 0.2 Ur Leukocyte Esterase (NEGATIVE) TRACE H Urine RBC (0 - 3 /HPF) 11-20 H Urine WBC (0 - 3 /HPF) 6-10 Ur Epithelial Cells (NONE - FEW /LPF) MODERATE H Urine Bacteria (NEGATIVE /HPF) 2+ H Urine Mucus (NONE SEEN /LPF) 2+ Urine HCG, Qual (NEGATIVE) NEGATIVE Recent Impressions: CAT SCAN - CT ABD PELVIS W/CONT 01/07 915 Report Impression - Status: SIGNED Entered: 01/07/2022 0934 IMPRESSION: No acute abnormality in the abdomen or pelvis. Impression By: Deonna Teixeira MD ECG #1 Interpretation Text/Dict Note Normal sinus rhythm, 78 BPM, normal intervals, normal axis, normal QRS. Normal ST segments, no ST segment elevations or depressions. No ectopy. Date 01/07/22 Time 0819 Re-Evaluation MDM ED Course Medication(s) Ordered Medication(s) Ordered: Central Nervous System Agents Sig/Britany Start time Last Medication Dose Route Stop Time Status Admin Morphine Sulfate 4 MG X1ED STA 01/07 0751 DC 01/07 IV 01/07 0752 0830 Diagnostic Agents Sig/Britany Start time Last Medication Dose Route Stop Time Status Admin Iopamidol 0 .STK-MED ONE 01/08 924 DC 01/07 IV 0928 Gastrointestinal Drugs Sig/Britany Start time Last Medication Dose Route Stop Time Status Admin Ondansetron HCl 4 MG X1ED PRN PRN 01/08 800 DC 01/07 IV 08 Other Sig/Britany Start time Last Medication Dose Route Stop Time Status Admin Sodium Chloride 50 ML .STK-MED ONE 01/08 924 DC 01/07 IV 09 Patient Discharge Departure Vital Signs/Condition Vital Signs First Documented: Result Date Time Pulse Ox 95 01/07 0750 B/P 125/88 01/07 0750 B/P Mean 100 / 0750 O2 Delivery Room air 01/07 0750 Temp 36.7 01/07 0750 Pulse 85 / 0750 Resp 16 01/07 0750 Last Documented: Result Date Time Pulse Ox 100 01/07 0900 B/P 117/78 01/07 0900 Pulse 84 01/07 0900 B/P Mean 100 / 0750 O2 Delivery Room air 01/07 0750 Temp 36.7 01/07 0750 Resp 16 01/07 0750 All vital signs available at the time of this entry have been reviewed. Condition Stable, Improved Clinical Impression Clinical Impression Primary Impression: Right flank pain Secondary Impressions: UTI (urinary tract infection) Disposition Decision Discharge )( Discharged to Home Yes )( Time 0941 )( Date 01/07/22 Discharge/Care Plan Counseled Regarding Diagnosis, Lab results, Imaging studies, Prescriptions, Need for follow-up, When to return to ED (Auto) Prescriptions Current Visit Scripts CEPHALEXIN (KEFLEX) 500 MG PO TID 7 Days #21 CAPS Patient Instructions ED Cystitis Female Adult, ED Flank Pain, Uncertain Cause Departure Forms FREE OR LOW COST CLINICS Discharge Note I have spoken with the patient and/or caregivers. I have explained the patient's condition, diagnoses and treatment plan based on the information available to me at this time. I have answered the patient's and/or caregiver's questions and addressed any concerns. The patient and/or caregivers have as good an understanding of the patient's diagnosis, condition and treatment plan as can be expected at this point. The vital signs have been stable. The patient's condition is stable and appropriate for discharge from the emergency department. The patient will pursue further outpatient evaluation with the primary care physician or other designated or consulting physician as outlined in the discharge instructions. The patient and/or caregivers are agreeable to this plan of care and follow-up instructions have been explained in detail. The patient and/or caregivers have received these instructions in written format and have expressed an understanding of the discharge instructions. The patient and/or caregivers are aware that any significant change in condition or worsening of symptoms should prompt an immediate return to this or the closest emergency department or a call to 911. at 150[address] [facility] #:[id number] [facility] 2018-06-13 11:54:00 Discharge Instructions 2 Discharge Diagnosis pharynitis Important Information Consult your physician or return to the Emergency Department immediately if worse, if not better as expected, or if any problems arise. Follow Up Care Yes Important Information Please understand that you have received care only on an emergency basis. If your condition does not improve, you should call your personal physician for follow-up care. If you do not have a physician, you may call the referred physician listed. If you have questions about your care or these discharge instructions, you may call the Emergency Department. Please take your discharge paperwork with you to any follow-up appointments. Follow-Up With: Primary Care Physician Activity Level As tolerated, unrestricted Diet Regular Prescriptions Given Via: N/A Patient Teaching Patient education provided [facility] ([facility]) 2018-02-03 10:58:00 Discharge Instructions 2 Discharge Diagnosis cervical strain, neck pain, muscle spasm, neck exercises Important Information Consult your physician or return to the Emergency Department immediately if worse, if not better as expected, or if any problems arise. Follow Up Care Yes Important Information Please understand that you have received care only on an emergency basis. If your condition does not improve, you should call your personal physician for follow-up care. If you do not have a physician, you may call the referred physician listed. If you have questions about your care or these discharge instructions, you may call the Emergency Department. Please take your discharge paperwork with you to any follow-up appointments. Follow-Up With: Primary Care Physician Activity Level As tolerated, unrestricted Diet Regular Prescriptions Given Via: Printed and given to patient/caregiver. Patient Teaching Patient education provided [facility] ([facility])
[2024-09-12] MEDS ORDERED: KETOROLAC 30 MG/ML INJ ONE (19:32)
[2024-09-12] MEDS ORDERED: ACETAMINOPHEN 500 MG TAB ONE (19:33)
[2024-09-12] MEDS ORDERED: NA CHLORIDE 0.9% 1,000 ML ONE (19:33)
[2024-09-12 20:10] LABS: Absolute Eosinophils 0.1 K/uL (0-0.5); Absolute Lymphocytes (CBC) 0.7 K/uL (0.7-4.9); Absolute Monocytes 0.6 K/uL (0.1-1.3); Absolute Neutrophil 9.8 K/uL (1.8-8.0); Basophils % 0.3 % (0-1.3); Eosinophils % 0.5 % (0-4.4); Hematocrit 36.9 % (36.0-45.0); Hemoglobin 12.9 g/dL (12.0-15.0); Lymphocytes % 6.7 % (15.3-44.8); MCH 30.7 pg (27.0-35.0); MCV 87.6 fL (80-100); MPV 7.4 fL (7.6-11.3); Neutrophils % 87.5 % (41.7-73.7); Platelets 189 thou/uL (152-406); RBC Red Blood Cell Count 4.21 M/uL (3.86-4.86); Red Cell Distribution Width 13.1 % (12.1-15.2)
[2024-09-12 20:28] LABS: SARS-CoV-2 Antigen Rapid Res Negative (Negative)
[2024-09-12 20:34] LABS: Anion Gap 9.1 mEq/L (5.0-15.0)
[2024-09-12 20:36] LABS: Potassium 4.1 mEq/L (3.5-5.1)
[2024-09-12 21:50] LABS: Sqamous Epithelial <5 /HPF (None Seen); Urine Bacteria None Seen /HPF (<20); Urine Bilirubin NEGATIVE (Negative); Urine Blood 1+ (Negative); Urine Clarity Turbid (Clear); Urine Color Light-Yellow (Yellow); Urine Culture Reflex Order NOT NEEDED; Urine Glucose NEGATIVE (Negative); Urine Ketones NEGATIVE (Negative); Urine Microscopic Reflex YN ORDER UMIC; Urine Mucus Slight /HPF (None Seen); Urine Nitrite NEGATIVE (Negative); Urine Protein NEGATIVE (Negative); Urine Urobilinogen Normal (Normal); Urine WBC <5 /HPF (<5)
--- NOTE | 2024-09-12 22:16 | ER ---
Nurse's Notes [facility] Name: Estela Lafleur Age: 34 yrs Sex: Female : 1990 Arrival Date: 09/12/2024 Time: 17:49 Bed 12 Private MD: Diagnosis: Acute pharyngitis, unspecified;Fever, unspecified Presentation: 09/12 18:09 Chief complaint: EMS states: toned out to [facility] for fever/chills, body aches and me1 sore throat since this morning. Coronavirus screen: Vaccine status: Patient reports being unvaccinated. Ebola Screen: No symptoms or risks identified at this time. Initial Sepsis Screen: Does the patient meet any 2 criteria? HR > 90 bpm. Does the patient have a suspected source of infection? No. Patient's initial sepsis screen is negative. Risk Assessment: Do you want to hurt yourself or someone else? Patient reports no desire to harm self or others. Onset of symptoms was September 12, 2024 at 07:00. 18:09 Method Of Arrival: EMS: [facility] 18:09 Acuity: FAVIOLA 4 me1 Triage Assessment: 18:11 General: Appears ill, well groomed, well developed, well nourished, Behavior is calm, me1 cooperative, appropriate for age. Pain: Complains of pain in soft palate, left buccal mucosa and right buccal mucosa Pain does not radiate. Pain currently is 8 out of 10 on a pain scale. Quality of pain is described as burning, aching, tender, Pain began gradually, Is continuous. EENT: Reports pain when swallowing. Neuro: Level of Consciousness is awake, alert, obeys commands, Oriented to person, place, time, situation, Appropriate for age. Cardiovascular: Patient's skin is warm and dry. Respiratory: Airway is patent Respiratory effort is even, unlabored, Respiratory pattern is regular, symmetrical. 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 - Infectious Disease History:: Denies. - Social history:: Smoking status: Patient reports the use of cigarette tobacco products, smokes one-half pack cigarettes per day, Reported history of juuling and/or vaping. Screenin:30 [facility] ED Fall Risk Assessment (Adult) History of falling in the last 3 months, kj2 including since admission No falls in past 3 months (0 pts) Confusion or Disorientation No (0 pts) Intoxicated or Sedated No (0 pts) Impaired Gait No (0 pts) Mobility Assist Device Used No (0 pt) Altered Elimination No (0 pt) Score/Fall Risk Level 0 - 2 = Low Risk Maintained a safe environment, Hourly rounding (assess needs \T\ fall precautionary measures) done. Abuse screen: Denies threats or abuse. Denies injuries from another. Nutritional screening: No deficits noted. Tuberculosis screening: No symptoms or risk factors identified. Assessment: 19:30 General: Appears in no apparent distress. Behavior is calm, cooperative. Pain: kj2 Complains of pain in mouth Pain currently is 8 out of 10 on a pain scale. Neuro: Level of Consciousness is awake, alert, obeys commands, Oriented to person, place, time, situation. Cardiovascular: Patient's skin is warm and dry. Respiratory: Airway Respiratory effort is unlabored. GI: No signs and/or symptoms were reported involving the gastrointestinal system. : No signs and/or symptoms were reported regarding the genitourinary system. 19:30 EENT: Throat is pink. kj2 20:23 Reassessment: Patient appears in no apparent distress at this time. Patient and/or kj2 family updated on plan of care and expected duration. Pain level reassessed. Patient is alert, oriented x 3, equal unlabored respirations, skin warm/dry/pink. 21:22 Reassessment: Patient appears in no apparent distress at this time. Patient and/or kj2 family updated on plan of care and expected duration. Pain level reassessed. Patient is alert, oriented x 3, equal unlabored respirations, skin warm/dry/pink. 22:22 Reassessment: Patient appears in no apparent distress at this time. Patient and/or kj2 family updated on plan of care and expected duration. Pain level reassessed. Patient is alert, oriented x 3, equal unlabored respirations, skin warm/dry/pink. Vital Signs: 18:09 BP 122 / 79; Pulse 105; Resp 17; Temp 98.4; Pulse Ox 100% ; Weight 72.12 kg; Height 5 me1 ft. 3 in. ; Pain 8/10; 19:30 BP 126 / 76; Pulse 102; Resp 20; Pulse Ox 100% on R/A; kj2 20:30 BP 112 / 79; Pulse 104; Resp 20; Pulse Ox 100% on R/A; kj2 21:43 BP 108 / 64; Pulse 104; Resp 18; Pulse Ox 100% on R/A; kj2 22:22 BP 109 / 64; Pulse 97; Resp 18; Temp 98.1; Pulse Ox 100% on R/A; kj2 18:09 Body Mass Index 28.17 (72.12 kg, 160.02 cm) me1 18:09 Pain Scale: Adult me1 ED Course: 17:50 Patient arrived in ED. sb4 17:50 Danitza Wong PA-C is PHCP. sb4 17:50 Edward Red MD is Attending Physician. sb4 18:11 Triage completed. me1 18:11 Arm band placed on Patient placed in an exam room. me1 19:30 Patient has correct armband on for positive identification. Provided Education on: call kj2 light. 19:33 Antonia Leach, RN is Primary Nurse. kj2 21:05 Missed attempt(s): 20 gauge in right antecubital area. kj2 21:08 Test, Urine Sent. kj2 21:08 UA Rfx Favio Cult if indicated Sent. kj2 22:23 No provider procedures requiring assistance completed. Patient did not have IV access kj2 during this emergency room visit. Administered Medications: 20:09 Drug: Acetaminophen PO 1000 mg PO once Route: PO; kj2 22:25 Follow up: Response: No adverse reaction kj2 21:37 Not Given (Physician Discretion): ns 0.9% 1000 ml IV at 1 bolus Per protocol; to be sb4 given as a bolus over 60 minutes 21:41 Drug: Ketorolac IVP 30 mg IVP once {Note: given IM per provider.} Route: IVP; Site: kj2 Other; 22:25 Follow up: Response: No adverse reaction kj2 22:37 Drug: Amoxicillin-Clavulanate PO 875 mg PO once Route: PO; kj2 22:37 Follow up: Response: Medication administered at discharge. kj2 Medication: 22:24 VIS not applicable for this client. kj2 Outcome: 22:15 Discharge ordered by . sb4 22:24 Discharged to home ambulatory, kj2 22:24 Condition: stable 22:24 Discharge instructions given to patient, Instructed on discharge instructions, follow up and referral plans. 22:38 Patient left the ED. kj2 Signatures: Danitza Wong PA-C PAXena sb4 Maddy No RN RN me1 Antonia Leach RN RN kj2
--- NOTE | 2024-09-12 22:16 | EDPHYS ---
Physician Documentation [facility] Name: Estela Lafleur Age: 34 yrs Sex: Female : 1990 Arrival Date: 09/12/2024 Time: 17:49 Bed 12 Private MD: ED Physician Edward Red HPI: 09/12 21:31 This 34 yrs old Female presents to ER via EMS with complaints of Fever, Sore Throat. sb4 21:31 patient reports fever, chills, and sore throat since this morning. no cough, sb4 congestion, n/v/d. thinks she may have an STI as well, is currently being treated for a yeast infection. denies any urinary symptoms. 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 - Infectious Disease History:: Denies. - Social history:: Smoking status: Patient reports the use of cigarette tobacco products, smokes one-half pack cigarettes per day, Reported history of juuling and/or vaping. ROS: 21:31 Abdomen/GI: Negative for abdominal pain, nausea, vomiting, diarrhea, and constipation, sb4 21:31 Constitutional: Positive for chills, fever, 21:31 ENT: Positive for sore throat, 21:31 All other systems are negative, Exam: 21:31 Head/Face: Normocephalic, atraumatic. Eyes: Extra-ocular motions intact. Periorbital sb4 areas with no swelling, redness, or edema. ENT: Mucous membranes moist. Cardiovascular: Regular rate and rhythm with a normal S1 and S2. Respiratory: No increased work of breathing, no retractions or nasal flaring. Abdomen/GI: Soft, non-tender, no distension. Skin: Warm, dry with normal turgor. Normal color with no rashes, no lesions, and no evidence of cellulitis. 21:31 Constitutional: The patient appears alert, awake, obviously ill, 21:31 ENT: Posterior pharynx: is normal, no acute changes, Tonsils: are normal in appearance, Vital Signs: 18:09 BP 122 / 79; Pulse 105; Resp 17; Temp 98.4; Pulse Ox 100% ; Weight 72.12 kg; Height 5 me1 ft. 3 in. ; Pain 8/10; 19:30 BP 126 / 76; Pulse 102; Resp 20; Pulse Ox 100% on R/A; kj2 20:30 BP 112 / 79; Pulse 104; Resp 20; Pulse Ox 100% on R/A; kj2 21:43 BP 108 / 64; Pulse 104; Resp 18; Pulse Ox 100% on R/A; kj2 22:22 BP 109 / 64; Pulse 97; Resp 18; Temp 98.1; Pulse Ox 100% on R/A; kj2 18:09 Body Mass Index 28.17 (72.12 kg, 160.02 cm) me1 18:09 Pain Scale: Adult me1 MDM: 17:50 Medical Screening Exam initiated sb4 22:53 Data reviewed: vital signs, nurses notes, EMS record, lab test result(s), and as a sb4 result, I will discharge patient. Counseling: I had a detailed discussion with the patient and/or guardian regarding the historical points, exam findings, and any diagnostic results supporting the discharge/admit diagnosis, lab results, the need for outpatient follow up, for definitive care, to return to the emergency department if symptoms worsen or persist or if there are any questions or concerns that arise at home. 09/12 17:52 Order name: Group A Streptococcus Rapid; Complete Time: 20:20 sb4 09/12 17:52 Order name: SARS RAPID; Complete Time: 20:30 sb4 09/12 17:52 Order name: UA Rfx Favio Cult if indicated; Complete Time: 21:59 sb4 09/12 17:52 Order name: CBC with Diff; Complete Time: 20:11 sb4 09/12 17:52 Order name: BMP; Complete Time: 20:40 sb4 09/12 17:52 Order name: Test, Urine; Complete Time: 21:59 sb4 09/12 20:23 Order name: Throat Culture EDMS Administered Medications: 20:09 Drug: Acetaminophen PO 1000 mg PO once Route: PO; kj2 22:25 Follow up: Response: No adverse reaction kj2 21:37 Not Given (Physician Discretion): ns 0.9% 1000 ml IV at 1 bolus Per protocol; to be sb4 given as a bolus over 60 minutes 21:41 Drug: Ketorolac IVP 30 mg IVP once {Note: given IM per provider.} Route: IVP; Site: [facility] Other; 22:25 Follow up: Response: No adverse reaction kj2 22:37 Drug: Amoxicillin-Clavulanate PO 875 mg PO once Route: PO; kj2 22:37 Follow up: Response: Medication administered at discharge. kj2 Disposition Summary: 09/12/24 22:15 Discharge Ordered Notes: Location: Home sb4 Problem: new sb4 Symptoms: have improved sb4 Condition: Stable sb4 Diagnosis - Acute pharyngitis, unspecified sb4 - Fever, unspecified sb4 Followup: sb4 - With: Emergency Department - When: As needed - Reason: Fever > 102 F, Worsening of condition Discharge Instructions: - Discharge Summary Sheet sb4 - Fever, Adult sb4 - Pharyngitis, Uror-rw-[id number] sb4 Forms: - Antibiotic Education sb4 - Patient Portal Instructions sb4 - Leadership Thank You Letter sb4 Prescriptions: - Amoxicillin 875 mg Oral Tablet - take 1 tablet ORAL route every 12 hours for 10 days; 20 tablet; Refills: 0, sb4 Product Selection Permitted Addendum: 09/14/2024 16:27 Co-signature as Attending Physician, Edward Red MD I agree with the assessment and c martinez plan of care. Signatures: Dispatcher [employer] Edward José MD MD cha Brown, Sophia, PA-C PA-C sb4 Maddy No, RN RN me1 Antonia Leach, ALEKSANDR RN kj2 Corrections: (The following items were deleted from the chart) 09/12 17:53 17:53 Group A Streptococcus Rapid Sc+I.LAB.BRZ ordered. EDMS EDMS 17:53 17:53 SARS-COV-2 Antigen Rapid+I.LAB.BRZ ordered. EDMS EDMS 17:53 17:53 UA Rfx Favio Cult if indicated+U.LAB.BRZ ordered. EDMS EDMS 17:53 17:53 CBC+H.LAB.BRZ ordered. EDMS EDMS 17:53 17:53 BASIC METABOLIC PANEL+C.LAB.BRZ ordered. EDMS EDMS 17:53 17:53 Test, Urine+UC.LAB.BRZ ordered. EDMS EDMS
[2024-09-12] MEDS ORDERED: AMOX/K CLAV 875 MG TAB ONE (22:32)
[2024-09-12 22:54] VITALS: O2SAT 100
[2024-09-12 22:59] VITALS: BP 109/64; TEMP 98.1
== END 2024-09-12 22:38 | disposition home or self-care (01) ==
LOC: ER 17:49
DX: R50.9 Fever, unspecified (principal); J02.9 Acute pharyngitis, unspecified; F17.210 Nicotine dependence, cigarettes, uncomplicated; Z11.52 Encounter for screening for COVID-19
CPT/HCPCS: 36415; 80048; 81001; 81025; 85025; 87070; 87426; 96374; 99284; J7030